=== PATIENT | female | born 1990 | race Caucasian/White ===

== ENCOUNTER 2017-05-13 14:33 | Inpatient (IN) | payer MEDICAID ==
[2017-05-13] VITALS (41 sets, daily range): BP systolic 98–171; BP diastolic 48–103; PULSE 77–175; RESP 18–20; TEMP 97.9–99.5
[2017-05-13] MEDS ORDERED: LACTATED RINGER'S 1000 ML INJ 1,000 ML IV PRN (15:52)
[2017-05-13] MEDS: LACTATED RINGER'S 1000 ML INJ 1,000 ML IV SCH ×3 (15:52→20:30)
--- NOTE | 2017-05-13 15:52 | HHI.HP ---
HPI Chief Complaint Contractions Date Seen: May 13, 2017 Time Seen: 15:45 Travel History International Travel<30 Days: No Contact w/Intl Traveler<30Days: No Known Affected Area: No History of Present Illness HPI Patient is 26-year-old white female at [address] Unger for care and presents with regular painful contractions are every 4-5 minutes apart, denies bleeding or leakage of fluid. heart rate tracing is reactive, and she is archie on the monitor approximately every 5 minutes Weeks Gestation: 40 Para: 0 : 3 History Obstetric History Obstetric History Patient's had 1 ectopic in the past and one early loss Social History Alcohol Use: No Tobacco Use: No Substance Abuse: No Review of Systems General / Constitutional: No: Fever, Weight Gain, Chills, Other Eyes: No: Diploplia, Blurred Vision, Visual changes, Pain, Photophobia HENT: No: Headaches, Vertigo, Lightheadedness Cardiovascular: No: Irregular Rhythm, Chest Pain or Discomfort, Palpitations, Tachycardia, Syncope, Varicosities, Edema, Cyanosis Respiratory: No: Cough, Short of Breath, Other Gastrointestinal: Abdominal Pain, No: Nausea, Vomiting, Diarrhea Genitourinary: No: Decreased Urinary Output, Oliguria Musculoskeletal: No: Limited ROM, Weakness, Cramping, Edema, Pain Skin: No Rash, No Itching, No Dryness, No Lumps, No Change in Pigmentation, No Change in Nails, No Alopecia, No Lesions Neurologic: No: Weakness, Dizziness, Syncope, Focal Abnormalities, Coordination Problem, Headache, Slurred Speech, Seizures Psychiatric: No: Depression, Suicidal Ideations, Homicidal Ideation Endocrine: No: Heat Intolerance, Cold Intolerance, Polydipsia, Polyuria, Other Physical Exam Narrative GENERAL: Well-nourished, well-developed patient. SKIN: Warm and dry. HEAD: Normocephalic and atraumatic. EYES: No scleral icterus. No injection or drainage. ENT: No nasal drainage noted. Mucous membranes pink. Airway patent. NECK: Supple, trachea midline. No JVD. CARDIOVASCULAR: Regular rate and rhythm without murmurs, gallops, or rubs. RESPIRATORY: Breath sounds equal bilaterally. No accessory muscle use. BREASTS: Bilateral exam showed no masses , no retractions, no nipple discharge. ABDOMEN/GI: Abdomen soft, non-tender, bowel sounds present, no rebound, no guarding Gravid to [40-] weeks size Fundal Height: [40-] GENITOURINARY: External Genitalia: intact and normal in appearance BUS glands: [-] Cervix: [-] Dilatation: [4-] Effacement: [90-] Station: [-2] Presentation: [vtx-] Membranes: [intact ] Uterine Contractions: [q 4-5 min-] FHT's: Category: [-1] Baseline: [-133] Reactive: [yes-] Variability: [mod-] Decels: [none-] EXTREMITIES: No cyanosis or edema. BACK: Nontender without obvious deformity. No CVA tenderness. NEUROLOGICAL: Awake and alert. Motor and sensory grossly within normal limits. Five out of 5 muscle strength in all muscle groups. Normal speech. Caprini VTE Risk Assessment Caprini VTE Risk Assessment: No/Low Risk (score <= 1) Caprini Risk Assessment Model Point Value = 1 Point Value = 2 Point Value = 3 Point Value = 5 Age 41-60 Minor surgery BMI > 25 kg/m2 Swollen legs Varicose veins or History of unexplained or recurrent spontaneous Oral contraceptives or hormone replacement Sepsis (< 1 month) Serious lung disease, including pneumonia (< 1 month) Abnormal pulmonary function Acute myocardial infarction Congestive heart failure (< 1 month) History of inflammatory bowel disease Medical patient at bed rest Age 61-74 Arthroscopic surgery Major open surgery (> 45 min) Laparoscopic surgery (> 45 min) Malignancy Confined to bed (> 72 hours) Immobilizing plaster cast Central venous access Age >= 75 History of VTE Family history of VTE Factor V Leiden Prothrombin [id number] Lupus anticoagulant Anticardiolipin antibodies Elevated serum homocysteine Heparin-induced thrombocytopenia Other congenital or acquired thrombophilia Stroke (< 1 month) Elective arthroplasty Hip, pelvis, or leg fracture Acute spinal cord injury (< 1 month) Prophylaxis Regimen Total Risk Factor Score Risk Level Prophylaxis Regimen 0-1 Low Early ambulation 2 Moderate Order ONE of the following: *Sequential Compression Device (SCD) *Heparin 5000 units SQ BID 3-4 Higher Order ONE of the following medications: *Heparin 5000 units SQ TID *Enoxaparin/Lovenox 40 mg SQ daily (WT < 150 kg, CrCl > 30 mL/min) *Enoxaparin/Lovenox 30 mg SQ daily (WT < 150 kg, CrCl > 10-29 mL/min) *Enoxaparin/Lovenox 30 mg SQ BID (WT < 150 kg, CrCl > 30 mL/min) AND/OR *Sequential Compression Device (SCD) 5 or more Highest Order ONE of the following medications: *Heparin 5000 units SQ TID (Preferred with Epidurals) *Enoxaparin/Lovenox 40 mg SQ daily (WT < 150 kg, CrCl > 30 mL/min) *Enoxaparin/Lovenox 30 mg SQ daily (WT < 150 kg, CrCl > 10-29 mL/min) *Enoxaparin/Lovenox 30 mg SQ BID (WT < 150 kg, CrCl > 30 mL/min) AND *Sequential Compression Device (SCD) Assessment/Plan Assessment and Plan Impression-- at 40 weeks in early labor with regular painful contractions and cervical change to 4 cm Plan-- admit to labor and delivery as labor appropriately augment as needed anticipate vaginal delivery Marc Gonzalez II, MD May 13, 2017 15:52
[2017-05-13] MEDS ORDERED: LIDOCAINE HCL 1% 50 ML VIAL I-DERMAL PRN (16:00)
[2017-05-13] MEDS ORDERED: LIDOCAINE HCL 1% 50 ML VIAL INFIL PRN (16:00)
[2017-05-13] MEDS ORDERED: CITRIC ACID-SODIUM CITRATE LIQ 30 ML UDC PO SCH (16:00)
[2017-05-13] MEDS ORDERED: SODIUM CHLORID 0.9% 500 ML INJ 500 ML IV PRN (16:00)
[2017-05-13] MEDS ORDERED: MINERAL OIL 10 ML VIAL TOPICAL PRN (16:00)
[2017-05-13] MEDS ORDERED: DIPHTH/TETANUS/ACEL PERTUSSIS (BOOSTER) 0.5 ML VIAL/PFS IM ONE (16:00)
[2017-05-13] MEDS ORDERED: MEASLES, MUMPS, RUBELLA VACCINE 0.5 ML VIAL SQ ONE (16:00)
[2017-05-13] MEDS ORDERED: OXYTOCIN 30 UNITS-500ML PREMIX 500 ML IV ONE (16:00)
[2017-05-13] MEDS ORDERED: SODIUM CHLOR 0.9% 1000 ML INJ 1,000 ML IV PRN (16:12)
[2017-05-13] MEDS ORDERED: PRENATAL VITAMIN PO (16:54)
[2017-05-13 17:13] LABS: BACTERIA, URINE OCC /hpf; BLOOD, URINE SMALL (NEG); COMMENT (UR) CULT NOT INDICATED; CULTURE IF INDICATED CULT NOT INDICATED; GLUCOSE,URINE NEG (NEG); KETONE, URINE NEG (NEG); MUCUS URINE FEW /lpf (OCC); NITRITE,URINE NEG (NEG); SQUAMOUS EPITHELIAL CELL URINE 5 /hpf (0-5); URINE COLOR LIGHT-YELLOW (YELLW/STRAW)
[2017-05-13] MEDS ORDERED: ONDANSETRON HCL 4 MG/2 ML VIAL ONE (17:30)
[2017-05-13 17:51] LABS: AUTOMATED NEUTROPHIL # 10.3 TH/MM3 (1.8-7.7); BASOPHIL # 0.1 TH/MM3 (0-0.2); BASOPHIL % 0.5 % (0.0-2.0); EOSINOPHIL # 0.2 TH/MM3 (0-0.4); EOSINOPHIL % 1.3 % (0.0-4.0); HEMATOCRIT 36.4 % (35.0-46.0); HEMO FLAGS DIFF FINAL; LYMPH % 16.4 % (9.0-44.0); LYMPHOCYTE # 2.2 TH/MM3 (1.0-4.8); MEAN CELL VOLUME 91.1 FL (80.0-100.0); MEAN CORPUSCULAR HEMOGLOBIN 31.6 PG (27.0-34.0); MEAN CORPUSCULAR HGB CONC 34.7 % (32.0-36.0); MONO % 6.2 % (0.0-8.0); NEUT % 75.6 % (16.0-70.0); PLATELET COUNT 358 TH/MM3 (150-450); RED BLOOD COUNT 3.99 MIL/MM3 (4.00-5.30); RED CELL DISTRIBUTION WIDTH 12.8 % (11.6-17.2); WHITE BLOOD COUNT 13.6 TH/MM3 (4.0-11.0)
[2017-05-13] MEDS ORDERED: fentaNYL 2MCG-BUPIV 0.125% INJ 100 ML ONE (17:59)
[2017-05-13] MEDS ORDERED: NO SYSTEM NARCOTICS PRN (19:15)
[2017-05-13] MEDS ORDERED: ePHEDrine/NS 25 MG/5 ML SYRINGE IV PUSH PRN (19:15)
[2017-05-13] MEDS ORDERED: fentaNYL 2MCG-BUPIV 0.125% 100 ML EPIDURAL SCH (19:15)
[2017-05-13] MEDS ORDERED: DO NOT ADMINISTER ANTICOAGULANTS PRN (19:15)
[2017-05-13] MEDS ORDERED: ACETAMINOPHEN 325 MG TAB PO PRN ×2 (20:30→22:15)
--- NOTE | 2017-05-13 22:02 | PD.OB.DELI ---
Weeks gestation: 40 Anesthesia: Epidural Episiotomy: Midline Vaginal Delivery: Normal Presentation: Occiput anterior Nuchal Cord: x1 Delayed cord clamping (45 sec): Yes : Male Delivery date: May 13, 2017 Delivery time: 22:02 One Minute : 8 Five Minute : 9 Weight: 8 Placenta: Spontaneous delivery Laceration: Episiotomy, 2 deg Repair: Chromic running, Vicryl running Estimated blood loss: 300 Ruba Foreman MD May 13, 2017 22:02
[2017-05-13] MEDS ORDERED: ALUMINUM/MAGNESIUM/SIMETH 30 ML CUP PO PRN (22:15)
[2017-05-13] MEDS ORDERED: SODIUM CHLORIDE 0.9% FLUSH 10 ML FLUSH IV FLUSH PRN (22:15)
[2017-05-13] MEDS ORDERED: ONDANSETRON ODT 4 MG TAB PO PRN (22:15)
[2017-05-13] MEDS ORDERED: OXYTOCIN 30 UNITS-500ML PREMIX 500 ML IV SCH (22:15)
[2017-05-13] MEDS ORDERED: BENZOCAINE 20% TOPICAL SPRAY 60 ML CAN TOPICAL PRN (22:15)
[2017-05-13] MEDS ORDERED: ZOLPIDEM TARTRATE 5 MG TAB PO PRN (22:15)
[2017-05-14] MEDS: IBUPROFEN 800 MG TAB PO PRN ×3 (00:30→17:49)
[2017-05-14] MEDS: WITCH HAZEL 50%/GLYCERIN 12.5% 40 PAD JAR TOPICAL PRN (00:30)
[2017-05-14 00:45] VITALS: BP 119/54; PULSE 96; RESP 20; TEMP 98.1; O2SAT 97
--- NOTE | 2017-05-14 08:04 | HHI.OB ---
Subjective Post Day: 1 Remarks doing amazing after pushing first out in no time at all Objective Vitals/I&O Vital Signs Date Time Temp Pulse Resp B/P (MAP) Pulse Ox O2 Delivery O2 Flow Rate FiO2 05/14/17 00:45 98.1 05/14/17 00:45 96 20 119/54 (75) 97 05/13/17 23:55 18 05/13/17 23:46 108/48 (68) 05/13/17 23:46 101 05/13/17 23:30 175 147/98 (114) 05/13/17 23:30 18 05/13/17 23:15 104 121/58 (79) 05/13/17 23:01 98 100/77 (85) 05/13/17 23:00 18 05/13/17 22:45 140 152/99 (116) 05/13/17 22:45 18 05/13/17 22:30 98 18 05/13/17 22:30 131/72 (91) 05/13/17 22:15 99 132/71 (91) 05/13/17 22:15 18 05/13/17 22:00 18 05/13/17 22:00 107 116/73 (87) 05/13/17 22:00 18 05/13/17 22:00 98.2 05/13/17 21:25 104 05/13/17 21:20 101 05/13/17 21:15 90 05/13/17 21:15 98 134/61 (85) 05/13/17 21:15 99.5 05/13/17 21:15 98 134/61 (85) 05/13/17 21:15 90 05/13/17 21:15 18 05/13/17 21:10 91 05/13/17 21:05 95 05/13/17 21:00 97 119/61 (80) 05/13/17 21:00 98 05/13/17 20:55 98 05/13/17 20:50 96 05/13/17 20:45 94 98/69 (79) 05/13/17 20:45 92 05/13/17 20:31 18 05/13/17 20:30 96 112/58 (76) 05/13/17 20:30 91 05/13/17 20:04 18 05/13/17 20:00 88 108/70 (83) 05/13/17 20:00 95 05/13/17 19:35 88 05/13/17 19:34 98.3 18 05/13/17 19:30 90 05/13/17 19:30 78 112/57 (75) 05/13/17 19:11 18 05/13/17 19:10 80 05/13/17 19:05 79 05/13/17 19:00 84 105/51 (69) 05/13/17 19:00 90 05/13/17 18:40 89 05/13/17 18:36 86 114/53 (73) 05/13/17 18:35 87 05/13/17 18:30 91 05/13/17 18:30 20 05/13/17 18:30 92 124/54 (77) 05/13/17 18:25 91 112/75 (87) 05/13/17 18:25 103 05/13/17 18:22 85 100/78 (85) 05/13/17 18:21 103 171/103 (125) 05/13/17 18:20 90 05/13/17 18:15 86 05/13/17 17:45 97.9 05/13/17 17:39 18 05/13/17 17:37 77 149/56 (87) Objective Remarks GENERAL: Well-nourished, well-developed patient. CARDIOVASCULAR: Regular rate and rhythm without murmurs, gallops, or rubs. RESPIRATORY: Breath sounds equal bilaterally. No accessory muscle use. ABDOMEN/GI: Abdomen soft, non-tender. Fundus: Firm, non-tender at umbilicus. GENITOURINARY: Light to moderate bleeding. EXTREMITIES: No cyanosis or edema, non-tender, without signs of DVT. Medications and IVs Current Medications Medications (Trade) Dose Ordered Sig/Isabella Route Start Time Stop Time Status Last Admin Miscellaneous Information No systemic narcotics to be given except... UNSCH PRN .XX 05/13/17 19:15 05/14/17 19:14 Miscellaneous Information DO NOT ADMINISTER ANY ANTICOAGUL... UNSCH PRN .XX 05/13/17 19:15 05/14/17 19:14 Fentanyl/ Bupivacaine HCl 100 ml @ 0 mls/hr TITRATE EPIDURAL 05/13/17 19:15 05/13/17 20:31 (ePHEDrine/NS 25 MG/5 ML SYR) 10 mg UNSCH PRN IV PUSH 05/13/17 19:15 05/14/17 19:14 (Tylenol) 650 mg Q4H PRN PO 05/13/17 20:30 05/13/17 20:30 (NS Flush) 2 ml BID IV FLUSH 05/14/17 09:00 (NS Flush) 2 ml UNSCH PRN IV FLUSH 05/13/17 22:15 (Tylenol) 650 mg Q4H PRN PO 05/13/17 22:15 (Motrin) 800 mg Q8H PRN PO 05/13/17 22:15 05/14/17 00:30 (Americaine 20% Top Spr) 1 spray Q4H PRN TOPICAL 05/13/17 22:15 05/14/17 00:31 (Tucks Pads) 1 applic QID PRN TOPICAL 05/13/17 22:15 05/14/17 00:30 (Mandy-Colace) 2 tab Q12H PRN PO 05/13/17 22:15 (Ambien) 5 mg HS PRN PO 05/13/17 22:15 (Mag-Al Plus Susp Liq) 15 ml Q8H PRN PO 05/13/17 22:15 (Zofran Odt) 4 mg Q6H PRN PO 05/13/17 22:15 Assessment/Plan Assessment and Plan Impression-- at 40 weeks in early labor with regular painful contractions and cervical change to 4 cm Plan-- admit to labor and delivery as labor appropriately augment as needed anticipate vaginal delivery 05/14/17 Doing well Home in am if needs circ will do in office Ruba Foreman MD May 14, 2017 08:04
[2017-05-14 08:30] VITALS: BP 112/57; PULSE 84; RESP 17; TEMP 98.5
[2017-05-14] MEDS ORDERED: SODIUM CHLORIDE 0.9% FLUSH 10 ML FLUSH IV FLUSH SCH (09:00)
[2017-05-14] MEDS ORDERED: ACETAMINOPHEN/HYDROcodone 325 MG/5 MG TAB PO PRN (17:45)
[2017-05-14] MEDS: DOCUSATE SODIUM 50 MG/SENNA 8.6 MG TAB PO PRN (17:49)
[2017-05-14 20:00] VITALS: BP 120/65; PULSE 63; RESP 16; TEMP 97.8; O2SAT 98
[2017-05-15] MEDS: WITCH HAZEL 50%/GLYCERIN 12.5% 40 PAD JAR TOPICAL PRN (04:00)
[2017-05-15] MEDS: IBUPROFEN 800 MG TAB PO PRN (06:35)
[2017-05-15] MEDS: DOCUSATE SODIUM 50 MG/SENNA 8.6 MG TAB PO PRN (06:36)
[2017-05-15 08:00] VITALS: BP 103/62; PULSE 88; RESP 18; TEMP 98.3; O2SAT 99
[2017-05-15] MEDS ORDERED: IBUP1TAB7 PO (13:47)
[2017-05-15] MEDS ORDERED: HYDR-3516 PO (13:47)
--- NOTE | 2017-05-15 13:53 | HHI.OB ---
Subjective Remarks Doing well Pain is controlled Baby is doing well Bleeding is normal. Objective Vitals/I&O Vital Signs Date Time Temp Pulse Resp B/P (MAP) Pulse Ox O2 Delivery O2 Flow Rate FiO2 05/15/17 08:00 98.3 88 18 103/62 (76) 99 05/14/17 20:00 97.8 63 16 120/65 (83) 98 Objective Remarks GENERAL: Well-nourished, well-developed patient. CARDIOVASCULAR: Regular rate and rhythm without murmurs, gallops, or rubs. RESPIRATORY: Breath sounds equal bilaterally. No accessory muscle use. ABDOMEN/GI: Abdomen soft, non-tender. Fundus: Firm, non-tender at umbilicus. GENITOURINARY: Light to moderate bleeding. EXTREMITIES: No cyanosis or edema, non-tender, without signs of DVT. Medications and IVs Current Medications Medications (Trade) Dose Ordered Sig/Isabella Route Start Time Stop Time Status Last Admin Fentanyl/ Bupivacaine HCl 100 ml @ 0 mls/hr TITRATE EPIDURAL 05/13/17 19:15 05/13/17 20:31 (NS Flush) 2 ml BID IV FLUSH 05/14/17 09:00 05/14/17 08:29 (NS Flush) 2 ml UNSCH PRN IV FLUSH 05/13/17 22:15 (Motrin) 800 mg Q8H PRN PO 05/13/17 22:15 05/15/17 06:35 (Americaine 20% Top Spr) 1 spray Q4H PRN TOPICAL 05/13/17 22:15 05/14/17 00:31 (Tucks Pads) 1 applic QID PRN TOPICAL 05/13/17 22:15 05/15/17 04:00 (Mandy-Colace) 2 tab Q12H PRN PO 05/13/17 22:15 05/15/17 06:36 (Ambien) 5 mg HS PRN PO 05/13/17 22:15 (Mag-Al Plus Susp Liq) 15 ml Q8H PRN PO 05/13/17 22:15 (Zofran Odt) 4 mg Q6H PRN PO 05/13/17 22:15 ([place] 5-325 Mg) 1 tab Q4H PRN PO 05/14/17 17:45 05/14/17 21:06 Assessment/Plan Assessment and Plan PPD #2 Home today. Mathieu Malin MD May 15, 2017 13:52
== END 2017-05-15 15:19 | disposition home or self-care (01) | DRG 775 ==
LOC: HOBED 14:33 → H2EA 16:16 → H1EA 05-14 00:01
PROVIDERS: ADMIT Obstetrics & Gynecology; ATTEND Obstetrics & Gynecology
PROC: 10E0XZZ Delivery of Products of Conception, External Approach (ICD-10-PCS; principal; 2017-05-13)
PROC: 0W8NXZZ Division of Female Perineum, External Approach (ICD-10-PCS; 2017-05-13)
DX: O69.81X0 Labor and delivery complicated by cord around neck, without compression, not applicable or unspecified (principal); Z37.0 Single live birth; Z3A.40 40 weeks gestation of pregnancy
CPT/HCPCS: 59025; 80307; 81001; 85025; 86850; 86900; 86901; 90715; J2405; J3010; J7120